=== PATIENT | female | born 1995 | race Caucasian/White ===

== ENCOUNTER 2017-12-20 21:12 | Emergency (ER) | payer OTHER ==
[~2017-12-20] VITALS: Ht 165.1 cm; Wt 67.6 kg
== END 2017-12-21 01:22 | disposition home or self-care (01) ==
LOC: ER 21:12
DX: L20.89 Other atopic dermatitis (principal)

== ENCOUNTER 2018-04-14 22:13 | Emergency (ER) | payer OTHER ==
[~2018-04-14] VITALS: Ht 165.1 cm; Wt 65.8 kg
[2018-04-14] MEDS ORDERED: IRON PO (22:42)
[2018-04-14] MEDS ORDERED: IRON18 MG PO (22:44)
[2018-04-15] MEDS ORDERED: IRON1TAB4 PO (02:20)
== END 2018-04-15 02:12 | disposition home or self-care (01) ==
LOC: ER 22:13
DX: E28.2 Polycystic ovarian syndrome (principal); N93.8 Other specified abnormal uterine and vaginal bleeding

== ENCOUNTER 2018-04-25 22:39 | Emergency (ER) | payer OTHER ==
[~2018-04-25] VITALS: Ht 165.1 cm; Wt 68.0 kg
[~2018-04-25 22:39] MED LIST: IRON PO; IRON18 MG PO; IRON1TAB4 PO
[2018-04-25] MEDS ORDERED: [UNRECOGNIZED DRUG - OTHER] (22:51)
== END 2018-04-26 19:58 | disposition home or self-care (01) ==
LOC: ER 22:39
DX: N93.8 Other specified abnormal uterine and vaginal bleeding (principal); D64.9 Anemia, unspecified; R51 Headache

== ENCOUNTER 2018-12-04 13:09 | Emergency (ER) | payer OTHER ==
[~2018-12-04] VITALS: Ht 165.1 cm; Wt 70.3 kg
[~2018-12-04 13:09] MED LIST changes: +[UNRECOGNIZED DRUG - OTHER]
== END 2018-12-04 16:05 | disposition home or self-care (01) ==
LOC: ER 13:09
DX: N83.292 Other ovarian cyst, left side (principal); N83.291 Other ovarian cyst, right side; R10.2 Pelvic and perineal pain

== ENCOUNTER 2018-12-18 12:58 | Emergency (ER) | payer OTHER ==
[~2018-12-18] VITALS: Ht 165.1 cm; Wt 68.0 kg
== END 2018-12-18 15:44 | disposition home or self-care (01) ==
LOC: ER 12:58
DX: M43.6 Torticollis (principal)

== ENCOUNTER 2019-07-24 00:08 | Emergency (ER) | payer OTHER ==
[~2019-07-24] VITALS: Ht 165.1 cm; Wt 72.6 kg
[2019-07-24] MEDS ORDERED: ALYACEN1 EAC1 (00:25)
[2019-07-24] MEDS ORDERED: ALLEGRA ALLERG180 MG PO (05:04)
[2019-07-24] MEDS ORDERED: ZYNCOF 20-400120 ML PO (05:04)
[2019-07-24] MEDS ORDERED: OSEL75CA PO (05:04)
== END 2019-07-24 05:17 ==
LOC: ER 00:08
DX: J11.1 Influenza due to unidentified influenza virus with other respiratory manifestations (principal); R50.9 Fever, unspecified; B96.0 Mycoplasma pneumoniae [M. pneumoniae] as the cause of diseases classified elsewhere

== ENCOUNTER 2020-12-16 17:15 | Emergency (ER) | payer OTHER ==
[~2020-12-16] VITALS: Ht 165.1 cm; Wt 68.0 kg
[~2020-12-16 17:15] MED LIST changes: +ALLEGRA ALLERG180 MG PO; +ALYACEN1 EAC1; +OSEL75CA PO; +ZYNCOF 20-400120 ML PO
[2020-12-16] MEDS ORDERED: KETO10TA2 PO (20:01)
== END 2020-12-16 20:37 | disposition home or self-care (01) ==
LOC: ER 17:15
DX: R10.2 Pelvic and perineal pain (principal)

== ENCOUNTER 2021-01-06 17:13 | Emergency (ER) | payer OTHER ==
[~2021-01-06] VITALS: Ht 165.1 cm; Wt 72.6 kg
[~2021-01-06 17:13] MED LIST changes: +KETO10TA2 PO
[2021-01-06] MEDS ORDERED: KETO10TA2 (17:29)
[2021-01-06] MEDS ORDERED: ALYACEN1 EAC1 (17:29)
[2021-01-06] MEDS ORDERED: MACROBID 100 M100 MG PO (19:11)
== END 2021-01-06 19:18 | disposition home or self-care (01) ==
LOC: ER 17:13
DX: R30.0 Dysuria (principal); N39.0 Urinary tract infection, site not specified

== ENCOUNTER 2025-01-15 16:56 | Emergency (ER) | payer OTHER ==
[~2025-01-15] VITALS: Ht 165.1 cm; Wt 78.0 kg
[~2025-01-15 16:56] MED LIST changes: +KETO10TA2; +MACROBID 100 M100 MG PO
[2025-01-15] MEDS ORDERED: MOXIFLOXACIN3 ML OP (20:00)
== END 2025-01-15 22:17 | disposition home or self-care (01) ==
LOC: ER 16:56
DX: H10.89 Other conjunctivitis (principal)

== ENCOUNTER 2025-01-25 23:09 | Emergency (ER) | payer OTHER ==
[~2025-01-25] VITALS: Ht 165.1 cm; Wt 78.0 kg
[~2025-01-25 23:09] MED LIST changes: +MOXIFLOXACIN3 ML OP
[2025-01-25 23:16] VITALS: BP 122/89; O2SAT 99
[2025-01-25] MEDS ORDERED: FAMOtidine 10 MG/ML (4ML VIAL) IV ONE (23:30)
[2025-01-25] MEDS ORDERED: 0.9 % SODIUM CHLORIDE 1,000 ML IV ONE (23:30)
[2025-01-25] MEDS ORDERED: ONDANSETRON HCL 2 MG/ML VIAL IV ONE (23:30)
[2025-01-25] MEDS ORDERED: MORPHINE SULFATE 4 MG/ML VIAL IV ONE (23:30)
[2025-01-26] MEDS ORDERED: KETOROLAC TROMETHAMINE 30 MG VIAL IV STA (00:29)
[2025-01-26] MEDS ORDERED: FAMOTIDINE/PF 20 MG/2 ML VIAL ONE (00:34)
[2025-01-26] MEDS ORDERED: ONDANSETRON HCL 2 MG/ML VIAL ONE (00:34)
[2025-01-26 01:20] LABS: BASO % 0.3 % (0.1-1.2); EOS # 0.13 (0.04-0.54); EOS % 1.3 % (0.7-7.0); LYMPH # 2.50 (1.18-3.74); LYMPH % 25.3 % (19.3-53.1); MEAN PLATELET VOLUME 10.00 fl (9.4-12.4); MONO # 0.65 (0.24-0.82); MONO % 6.6 % (4.7-12.5); NEUT # 6.54 (1.56-6.13); NEUT % 66.1 % (34.0-71.1); RED CELL DISTRIBUTION WIDTH 13.7 % (11.6-14.4)
[2025-01-26 01:31] LABS: INR 1.04
[2025-01-26 02:13] LABS: ALT/SGPT 38 U/L (12-78); AST/SGOT 16 U/L (15-37); BILIRUBIN TOTAL 0.21 mg/dL (0.3-1.2); BUN CREA RATIO 15 (7.0-25.0); CREATININE SERUM 0.60 mg/dL (0.55-1.02); GFR 117.38; GLOBULINA 3.6 G/DL (2.4-3.5); GLUCOSE FASTING 96 mg/dL (65-100); OSMOLALITY SERUM 282 MOSM/KG (275-295)
[2025-01-26 02:14] LABS: HCG QUANTITATIVE < 1 mUI/mL (1-3)
[2025-01-26 06:33] LABS: URINE APPEARANCE Turbid; URINE BILIRRUBIN Small (NEGATIVE); URINE BLOOD Large; URINE COLOR Red; URINE GLUCOSE Negative (NEGATIVE); URINE KETONE Negative (NEGATIVE); URINE LEUKOCYTE Moderate; URINE NITRATE Positive; URINE UROBILINOGEN 0.2 E.U./dl
[2025-01-26 06:35] LABS: URINE BACTERIA 3145.1 uL (0.0-1933); URINE EPITHELIAL CELLS 11.5 uL (0.0-38.8); URINE WBC 1357.7 uL (0.0-23.2)
[2025-01-26 06:55] LABS: URINE CAST 0.00 uL (0.0-1.40); URINE PROTEIN 100 (NEGATIVE); URINE RBC > 10558.9 uL (0.0-20.8)
== END 2025-01-26 05:08 | disposition home or self-care (01) ==
LOC: ER 23:09
PROVIDERS: General Practice
DX: R10.2 Pelvic and perineal pain (principal); E28.2 Polycystic ovarian syndrome; N94.6 Dysmenorrhea, unspecified; D25.9 Leiomyoma of uterus, unspecified; N39.0 Urinary tract infection, site not specified

== ENCOUNTER 2025-05-23 12:00 | Emergency (ER) | payer OTHER ==
[~2025-05-23] VITALS: Ht 165.1 cm; Wt 78.9 kg
[2025-05-23] MEDS ORDERED: DROSPIRENONE-E1 EACH PO (13:31)
[2025-05-23] MEDS ORDERED: DIPHENHYDRAMINE HCL 50 MG/ML VIAL 1ML IV STA (13:54)
[2025-05-23] MEDS ORDERED: METHYLPREDNISOLONE SOD SUCC 125 MG VIAL IV STA (13:54)
[2025-05-23] MEDS ORDERED: METHYLPREDNISOLONE SOD SUCC 125 MG VIAL ONE (15:14)
[2025-05-23] MEDS ORDERED: DIPHENHYDRAMINE HCL 50 MG/ML VIAL 1ML ONE (15:14)
[2025-05-23 16:03] LABS: BASO % 0.1 % (0.1-1.2); EOS # 0.04 (0.04-0.54); EOS % 0.5 % (0.7-7.0); LYMPH # 1.51 (1.18-3.74); LYMPH % 17.4 % (19.3-53.1); MEAN PLATELET VOLUME 10.40 fl (9.4-12.4); MONO # 0.23 (0.24-0.82); MONO % 2.7 % (4.7-12.5); NEUT # 6.85 (1.56-6.13); NEUT % 79.0 % (34.0-71.1); RED CELL DISTRIBUTION WIDTH 16.3 % (11.6-14.4)
[2025-05-23 16:39] LABS: ALT/SGPT 21.0 U/L (12-78); AST/SGOT 14.0 U/L (15-37); BILIRUBIN TOTAL 0.33 mg/dL (0.3-1.2); BUN CREA RATIO 18.0 (7.0-25.0); CREATININE SERUM 0.67 mg/dL (0.55-1.02); GFR 103.34; GLOBULINA 4.5 G/DL (2.4-3.5); GLUCOSE FASTING 92.0 mg/dL (65-100); OSMOLALITY SERUM 286.0 MOSM/KG (275-295)
[2025-05-23] MEDS ORDERED: TRIAMCINOLONE A15 G4 TOP (17:02)
== END 2025-05-23 17:14 | disposition home or self-care (01) ==
LOC: ER 12:00
PROVIDERS: General Practice
DX: L30.8 Other specified dermatitis (principal); L40.9 Psoriasis, unspecified